=== PATIENT | female | born 1980 | race Caucasian/White ===

== ENCOUNTER 2019-05-18 21:09 | Emergency (ER) | payer OTHER ==
[2019-05-18] MEDS: KETOROLAC 30 MG INJ IM (22:27)
[2019-05-18] MEDS: DEXAMETHASONE 10 MG/ML 1 ML INJ IM (22:27)
== END 2019-05-18 23:40 | disposition home or self-care (01) ==
LOC: FTE 21:09
DX: M54.42 Lumbago with sciatica, left side (principal)
CPT/HCPCS: 81025; 96372; 99284-25